=== PATIENT | female | born 1940 | race Caucasian/White ===

== ENCOUNTER → 2017-02-15 | Outpatient (CLI) | payer MEDICARE, OTHER ==
--- NOTE | 2017-02-15 15:28 | EKG ---
[address] [address] Test Date: 2017-02-15 Test Time: 15:19:08 Pat Name: JANETH MAYES Department: Room: Gender: F Communications Department Chair: SANDI : 1940 Requested By: RICO KEATING Order Number: [id number] Reading MD: Measurements Intervals [place] Rate: 87 P: 66 MD: 164 QRS: 41 QRSD: 64 T: 41 QT: 336 QTc: 410 Interpretive Statements SINUS RHYTHM NO SPECIFIC ECG ABNORMALITIES RI6.01 No previous ECG available for comparison
--- NOTE | 2017-02-15 16:04 | RAD ---
INDICATION: SHORT OF BREATH COMPARISON: 11/10/2012 FINDINGS: 2 views of chest obtained. No definite focal airspace consolidation. Cardiac silhouette similar in appearance compared to prior. Degenerative changes of spine. Probable calcified granulomas. IMPRESSION: No definite focal airspace consolidation.
== END | disposition home or self-care (01) ==
LOC: DXRAD 14:54
PROVIDERS: ATTEND Nurse Practitioner Family
DX: J40 Bronchitis, not specified as acute or chronic (principal); R07.9 Chest pain, unspecified; R06.02 Shortness of breath; M47.899 Other spondylosis, site unspecified
CPT/HCPCS: 71020; 93005

== ENCOUNTER 2021-05-27 10:03 | Emergency (ER) | payer MEDICARE, OTHER ==
[~2021-05-27] VITALS: Ht 152.4 cm; Wt 94.0 kg
--- NOTE | 2021-05-27 10:49 | PHYS DOC ---
Past History Past Medical History: CAD, COPD Past Surgical History: Gastric Bypass Alcohol Use: None Adult General Chief Complaint Chief Complaint: SHORTNESS OF BREATH HPI HPI Patient is a 80-year-old female presenting for cough. This is an acute on chronic issue. She has extensive pulmonary disease most significant for COPD and is well covered in outpatient setting by [facility] physicians. She admits she is not on any blood thinning medications but has seen all subspecialist physicians within past 3 months that include health records technology teacher, garbage pick up man, primary care physician, and dog control officer for her lupus. States she has been at baseline health but admits recent upper respiratory infection that has been passed around her family recently. Reports numerous individuals had self-limiting upper respiratory symptoms but only x1 family member decided to get tested for Covid which was ultimately negative. Despite patient being vaccinated against COVID, she presents today for 2 weeks of symptoms. Reports initially having upper respiratory symptoms such as nasal congestion, rhinorrhea and postnasal drip that has developed into a deep productive cough with increased sputum production and purulence versus baseline. She has been using all home maintenance medications/inhalers with increased frequency of rescue inhaler and nebulizer without significant improvement. She called her primary care physician today to review symptoms and was ultimately advised to present to our ER for evaluation Review of Systems Review of Systems Fourteen body systems of review of systems have been reviewed. See HPI for pertinent positives and negative responses, other whitaker all other systems are negative, non-pertinent or non-contributory Allergies Allergies Allergies Coded Allergies Type Severity Reaction Last Updated Verified Sulfa (Sulfonamide Antibiotics) Allergy Unknown 05/27/21 Yes sulfamethoxazole Allergy Unknown 05/27/21 Yes trimethoprim Allergy Unknown 05/27/21 Yes Physical Exam Physical Exam Constitutional: Well developed, well nourished, no acute distress, non-toxic appearance. HENT: Normocephalic, atraumatic, bilateral external ears normal, oropharynx moist, no oral exudates, nose normal. Eyes: PERRLA, EOMI, conjunctiva normal, no discharge. Neck: Normal range of motion, no tenderness, supple, no stridor. Cardiovascular: Heart rate regular, sinus rhythm, no murmurs rubs or gallops Lungs & Thorax: Speaking in full sentences, no obvious respiratory distress but patient does have audible wheezing with expiration in all lung cabrera Abdomen: Bowel sounds normal, soft, no tenderness, no masses, no pulsatile masses. Nonsurgical abdomen, no peritoneal signs Skin: Warm, dry, no erythema, no rash. Back: No tenderness, no CVA tenderness. Extremities: No tenderness, no cyanosis, no clubbing, ROM intact, no edema. Neurologic: Alert and oriented X 3, grossly normal motor & sensory function, no focal deficits noted. Psychologic: Affect normal, judgement normal, mood normal. Current Patient Data Vital Signs Vital Signs Date Time Temp Pulse Resp B/P (MAP) Pulse Ox O2 Delivery O2 Flow Rate FiO2 05/27/21 10:22 99.0 116 18 133/81 (98) 94 Room Air Lab Results Laboratory Tests Test 05/27/21 11:38 White Blood Count 7.9 x10^3/uL Red Blood Count 4.18 x10^6/uL Hemoglobin 11.8 g/dL Hematocrit 36.1 % Mean Corpuscular Volume 86 fL Mean Corpuscular Hemoglobin 28 pg Mean Corpuscular Hemoglobin Concent 33 g/dL Red Cell Distribution Width 17.0 % Platelet Count 253 x10^3/uL Neutrophils (%) (Auto) 79 % Lymphocytes (%) (Auto) 14 % Monocytes (%) (Auto) 5 % Eosinophils (%) (Auto) 2 % Basophils (%) (Auto) 1 % Neutrophils # (Auto) 6.2 x10^3uL Lymphocytes # (Auto) 1.1 x10^3/uL Monocytes # (Auto) 0.4 x10^3/uL Eosinophils # (Auto) 0.1 x10^3/uL Basophils # (Auto) 0.1 x10^3/uL Sodium Level 137 mmol/L Potassium Level 4.1 mmol/L Chloride Level 99 mmol/L Carbon Dioxide Level 28 mmol/L Anion Gap 10 Blood Urea Nitrogen 11 mg/dL Creatinine 1.0 mg/dL Estimated GFR (Cockcroft-Gault) 53.5 Glucose Level 148 mg/dL Calcium Level 8.6 mg/dL Troponin I High Sensitivity 8 ng/L ZO-Nno-A-Type Natriuretic Peptide 95 pg/mL Influenza Type A (Rapid) Negative Influenza Type B (Rapid) Negative SARS-CoV-2 Antigen (Rapid) Negative Current Medications Medications (Trade) Dose Ordered Sig/Greg Route PRN Reason Start Time Stop Time Status Last Admin Dose Admin Aspirin (Aspirin Chewable) 162 mg 1X ONCE PO 05/27/21 11:15 05/27/21 11:16 DC 05/27/21 11:15 Nitroglycerin (Nitrostat) 0.4 mg PRN Q5MIN PRN SL CP RATING > 1/10 05/27/21 11:15 05/28/21 11:14 05/27/21 12:15 Methylprednisolone Sodium Succinate (SOLU-Medrol 125MG VIAL) 60 mg 1X ONCE IV 05/27/21 11:30 05/27/21 11:31 DC 05/27/21 11:30 Albuterol/ Ipratropium (Duoneb) 3 ml 1X ONCE NEB 05/27/21 11:30 05/27/21 11:31 DC 05/27/21 11:30 EKG EKG EKG ordered and interpreted by myself at 1210 hrs. as sinus tachycardia at 112 bpm, unremarkable intervals, no axis deviation, no acute ischemic findings, no STEMI Radiology/Procedures Radiology/Procedures EXAM: CHEST 1 VIEW History: Cough COMPARISON: 02/15/2017 TECHNIQUE: Single portable radiograph of the chest FINDINGS: The cardiac silhouette is unremarkable. Minimal bibasilar lung atelectasis or infiltrates. The costophrenic sulci are clear and well de marcated. IMPRESSION: Minimal bibasilar lung atelectasis or infiltrates. Electronically signed by: Herb Hernandez MD (05/27/2021 11:25 AM) [id number] Heart Score C/O Chest Pain: No Risk Factors: Risk Factors: DM, Current or recent (<one month) smoker, HTN, HLP, family history of CAD, obesity. Risk Scores: Risk Factors: DM, Current or recent (<one month) smoker, HTN, HLP, family history of CAD, obesity. Course & Med Decision Making Course & Med Decision Making ABCs unremarkable HPI physical exam and comprehensive ER work-up nonconcerning for any emergent or surgical issues Disclosed most likely diagnosis of acute exacerbation of COPD given increased shortness of breath with increased sputum production and purulence. Joint decision made to start antibiotics and prednisone burst I disclosed this might be an acute presentation more concerning pathology. Joint decision made to defer further work-up, given hemodynamic stability despite slight tachycardia from anxiety, joint decision made for close PCP follow-up for repeat evaluation Patient has access to health records technology teacher whom she had seen in prior month with outpatient CT performed that was grossly unremarkable. Advised her to contact this physician as well to review need for repeat follow-up Ultimately, strict return precautions discussed at length with good understanding by patient, all questions and concerns addressed prior to ER departure Ivis Disclaimer Ivis Disclaimer This electronic medical record was generated, in whole or in part, using a voice recognition dictation system. Departure Departure: Impression: Primary Impression: COPD with exacerbation Disposition: HOME / SELF CARE / HOMELESS Condition: STABLE Referrals: DANIELLE GORMAN (PCP) Patient Instructions: Chronic Obstructive Pulmonary Disease Exacerbation Additional Instructions: You were seen for a COPD exacerbation. Please continue your current regimen for symptom control and if prescribed any medications during your ED visit today, take them as prescribed until completion or your primary doctor changes your medications. It will be important that you follow up with your primary doctor/health records technology teacher after this ED visit. Return to the ED if you develop worsening cough, shortness of breath, fever > 101, chest pain, or any other new or concerning symptoms. Scripts Doxycycline Hyclate (DOXYCYCLINE HYCLATE) 100 Mg Tablet 1 TAB PO BID for COPD, #13 TAB Prov: MIKAYLA IBRAHIM DO 05/27/21 Prednisone (PREDNISONE) 20 Mg Tablet 40 MG PO DAILY for bronchitis for 5 Days, #10 TAB Prov: MIKAYLA IBRAHIM DO 05/27/21 MIKAYLA IBRAHIM DO May 27, 2021 10:49
[2021-05-27] MEDS ORDERED: ASPIRIN CHEWABLE 81 MG TABLET. PO ONE (11:15)
[2021-05-27] MEDS ORDERED: NITROGLYCERIN SUBLINGUAL 0.4 MG BOTTLE OF 25. SL PRN (11:15)
--- NOTE | 2021-05-27 11:28 | RAD ---
EXAM: CHEST 1 VIEW History: Cough COMPARISON: 02/15/2017 TECHNIQUE: Single portable radiograph of the chest FINDINGS: The cardiac silhouette is unremarkable. Minimal bibasilar lung atelectasis or infiltrates. The costophrenic sulci are clear and well demarcated. IMPRESSION: Minimal bibasilar lung atelectasis or infiltrates. Electronically signed by: Herb Hernandez MD (05/27/2021 11:25 AM) [id number]
[2021-05-27] MEDS ORDERED: methylPREDNISolone SOD SUCC PF 125 MG/2 ML VIAL. IV ONE (11:30)
[2021-05-27] MEDS ORDERED: IPRATRPIUM/ALBUTEROL 0.5/2.5MG 3 ML NEBU. NEB ONE (11:30)
[2021-05-27 11:59] LABS: BASO # 0.1 x10^3/uL (0.0-0.2); BASO % 1 % (0-3); EOS # 0.1 x10^3/uL (0.0-0.7); EOS % 2 % (0-3); HEMATOCRIT 36.1 % (36.0-47.0); HEMOGLOBIN 11.8 g/dL (12.0-15.5); LYMPH # 1.1 x10^3/uL (1.0-4.8); LYMPH % 14 % (24-48); MEAN CORPUSCULAR HEMOGLOBIN 28 pg (25-35); MEAN CORPUSCULAR HGB CONC 33 g/dL (31-37); MEAN CORPUSCULAR VOLUME 86 fL (79-100); MONO # 0.4 x10^3/uL (0.0-1.1); MONO % 5 % (0-9); NEUT # 6.2 x10^3uL (1.8-7.7); NEUT % 79 % (31-73); PLATELET COUNT 253 x10^3/uL (140-400); RED BLOOD COUNT 4.18 x10^6/uL (3.50-5.40); WHITE BLOOD COUNT 7.9 x10^3/uL (4.0-11.0)
[2021-05-27 12:10] LABS: CALCIUM 8.6 mg/dL (8.5-10.1); GFR 53.5; POTASSIUM 4.1 mmol/L (3.5-5.1)
[2021-05-27 12:16] LABS: INFLUENZA A PATIENT NEGATIVE (NEGATIVE); INFLUENZA B PATIENT NEGATIVE (NEGATIVE)
--- NOTE | 2021-05-27 12:16 | EKG ---
[address] [address] Test Date: 2021-05-27 Test Time: 12:05:44 Pat Name: JANETH MAYES Department: Room: Gender: F Test Hole Driller: HENRIQUE : 1940 Requested By: MIKAYLA IBRAHIM Order Number: [id number] Reading MD: Kamlesh Antoine Measurements Intervals [place] Rate: 112 P: 49 [place]: 156 QRS: 43 QRSD: 58 T: 51 QT: 306 QTc: 419 Interpretive Statements SINUS TACHYCARDIA Electronically Signed On 05-27-2021 12:19:38 WALL TAPER by Kamlesh Antoine
[2021-05-27 12:40] VITALS: BP 131/54
[2021-05-27] MEDS ORDERED: DOXY100T PO (12:49)
[2021-05-27] MEDS ORDERED: PRED20TA PO (12:49)
[2021-05-27] MEDS ORDERED: DOXYCYCLINE HYCLATE 100 MG TABLET PO ONE (13:00)
== END 2021-05-27 13:04 | disposition home or self-care (01) ==
LOC: ER 10:03
DX: J44.1 Chronic obstructive pulmonary disease with (acute) exacerbation (principal); I25.10 Atherosclerotic heart disease of native coronary artery without angina pectoris; Z20.822 Contact with and (suspected) exposure to COVID-19; Z98.84 Bariatric surgery status; Z88.2 Allergy status to sulfonamides; Z88.1 Allergy status to other antibiotic agents
CPT/HCPCS: 36415; 71045; 80048; 83880; 84484; 85025; 87428; 93005; 94640; 96374; 99285; J2930